=== PATIENT | female | born 1965 | race Asian ===

== ENCOUNTER 2020-03-02 03:22 | Emergency (ER) | payer OTHER ==
[~2020-03-02] VITALS: Ht 157.5 cm; Wt 70.0 kg
[2020-03-02] MEDS ORDERED: diphenhydrAMINE 50MG/ML VIAL (J1200) IV ONE (04:15)
[2020-03-02] MEDS ORDERED: methylPREDNISolone 125MG 2ML VIAL IV ONE (04:15)
[2020-03-02] MEDS ORDERED: FAMOTIDINE IV BAG 20 MG in IV 1 EA IV ONE (04:15)
[2020-03-02 05:45] VITALS: BP 112/69
[2020-03-02] MEDS ORDERED: PRED20TA PO (05:55)
[2020-03-02] MEDS ORDERED: BENA25CA4 PO (05:55)
[2020-03-02] MEDS ORDERED: PEPC1TAB5 PO (05:55)
--- NOTE | 2020-03-03 00:36 | ECGEPIP ---
[facility] - ED Test Date: 2020-03-02 Pat Name: KAYLA MARRERO Department: Room: - Gender: Female [employer] Technician: BINDU : 1965 Requested By: BARB Jansen Order Number: [id number] Reading MD: Chester Driscoll Measurements Intervals [place] Rate: 69 P: 36 NV: 158 QRS: 10 QRSD: 74 T: -2 QT: 385 QTc: 415 Interpretive Statements SINUS RHYTHM NONSPECIFIC T-WAVE ABNORMALITY NO PRIORS FOR COMPARISON Electronically Signed on 03-03-2020 0:36:10 EST by Chester Dricsoll
== END 2020-03-02 06:00 | disposition home or self-care (01) ==
LOC: M ED 03:22
DX: T78.40XA Allergy, unspecified, initial encounter (principal); Y92.9 Unspecified place or not applicable; Y93.9 Activity, unspecified
CPT/HCPCS: 93005; 96365; 96375; 99284; J1200; J2930